=== PATIENT | female | born 1960 | race Caucasian/White ===

== ENCOUNTER 2020-08-23 17:37 | Emergency (ER) | payer OTHER ==
[2020-08-23 19:56] LABS: HEMOGLOBIN 14.1 gm/dl (12.3-15.3); RED BLOOD COUNT 4.59 M/UL (4.00-5.10); WHITE BLOOD COUNT 9.1 K/UL (4.5-11.0)
[2020-08-23 19:59] LABS: BUN/CREATININE RATIO 19 (0-10)
[2020-08-23] MEDS ORDERED: ASPIRIN CHEWABL81 MG PO (22:40)
== END 2020-08-23 22:45 | disposition home or self-care (01) ==
LOC: ER1 17:37
PROVIDERS: Physician Assistant
DX: R07.89 Other chest pain (principal); F17.210 Nicotine dependence, cigarettes, uncomplicated; Z88.5 Allergy status to narcotic agent
CPT/HCPCS: 71045; 80053; 82550; 82553; 83874; 83880; 84484; 85025; 85610; 85730; 93005; 99285

== ENCOUNTER → 2020-09-11 | Outpatient (CLI) | payer OTHER ==
[~2020-09-11] MED LIST: ASPIRIN CHEWABL81 MG PO
== END ==
LOC: KOH-I 14:08
DX: Z12.2 Encounter for screening for malignant neoplasm of respiratory organs (principal); F17.210 Nicotine dependence, cigarettes, uncomplicated; R91.8 Other nonspecific abnormal finding of lung field
CPT/HCPCS: 71271

== ENCOUNTER → 2020-10-19 | Outpatient (CLI) | payer OTHER | LOC: LAB 07:39 | DX: E78.5 Hyperlipidemia, unspecified (principal) | CPT/HCPCS: 36415; 80061 ==

== ENCOUNTER → 2020-10-24 | Outpatient (CLI) | payer OTHER | LOC: HEART 5 11:00 | DX: R07.9 Chest pain, unspecified (principal) ==